=== PATIENT | male | born 1980 | race Caucasian/White ===

== ENCOUNTER 2018-06-30 17:04 | Observation (INO) | END 2018-07-01 08:45 | disposition home or self-care (01) ==

== ENCOUNTER 2018-07-03 23:39 | Observation (INO) | END 2018-07-05 14:05 | disposition home or self-care (01) ==

== ENCOUNTER 2018-07-08 18:32 | Emergency (ER) | END 2018-07-08 20:49 | disposition home or self-care (01) ==

== ENCOUNTER 2019-01-21 22:16 | Emergency (ER) | payer OTHER ==
[~2019-01-21] VITALS: Ht 190.5 cm; Wt 112.5 kg
[~2019-01-21 22:16] MED LIST: ACET-141 PO; AMOX1TAB9 PO; IBUP-1541 PO; LISI-471 PO
[2019-01-21 22:23] VITALS: BP 159/97; PULSE 65; RESP 18; Ht 190.5 cm; Wt 112.5 kg
== END 2019-01-22 00:13 | disposition left against medical advice (07) ==
LOC: FTE 22:16
DX: Z53.21 Procedure and treatment not carried out due to patient leaving prior to being seen by health care provider (principal)